=== PATIENT | female | born 1955 | race Asian ===

== ENCOUNTER 2017-07-13 10:58 | Emergency (ER) | payer SELFPAY ==
--- NOTE | 2017-07-13 11:30 | EDPHY ---
H & P Time Seen by Provider: 07/13/17 11:20 HPI/ROS: CHIEF COMPLAINT: Cough URI symptoms HISTORY OF PRESENT ILLNESS: 61-year-old woman visiting from [facility], has been in the [place] since early May, staying with family members all of whom have had similar URI symptoms, complaining of 3 days of fever, chills, intermittently productive cough and noticed some streaks of blood in her mucus. No chest pain. No back pain. No abdominal pain. No history of malignancy. No history of mobilization. No peripheral edema. No coagulopathic disorder. PRIMARY CARE PROVIDER: REVIEW OF SYSTEMS: A ten point review of systems was performed and is negative with the exception of the items mentioned in the HPI PAST MEDICAL & SURGICAL HISTORY: No pertinent medical or surgical history SOCIAL HISTORY: Nonsmoker PHYSICAL EXAM (Prior to examination, patient consented to physical exam, hands were washed and my usual and customary physical exam procedures followed) 1) GENERAL: Well-developed, well-nourished, alert and oriented. Appears to be in no acute distress. 2) HEAD: Normocephalic, atraumatic 3) HEENT: Pupils equal, round, reactive to light bilaterally. Sclera anicteric. Nasopharynx, oropharynx, clear, no lesions. Ears bilaterally with normal tympanic membranes. 4) NECK: Full range of motion, no meningeal signs. 5) LUNGS: Clear auscultation bilaterally, no wheezes, no rhonchi, no retractions. 6) HEART: Questionable right lower lobe rales. Regular rate and rhythm, no murmur, no heave, no gallop. 7) ABDOMEN: No guarding, no rebound, no focal tenderness, negative McBurney's, negative Campbell's, negative Rovsing's, negative peritoneal sign, 8) MUSCULOSKELETAL: Moving all extremities, no focal areas of tenderness, no obvious trauma. No peripheral edema or discoloration. Negative Homans no palpable cord 9) BACK: No CVA tenderness, no midline vertebral tenderness, no fluctuance, no step-off, no obvious trauma, no visual or palpable abnormality. 10) SKIN: No rash, no petechiae. 11) Psychiatric: Patient is oriented X 3, there is no agitation. DIFFERENTIAL DIAGNOSIS: In no particular include but limited to pneumonia, bronchitis, pulmonary embolus Smoking Status: Never smoked Constitutional: Initial Vital Signs Temperature (C) 37.1 C 07/13/17 11:09 Heart Rate 77 07/13/17 11:09 Respiratory Rate 18 07/13/17 11:09 Blood Pressure 111/79 07/13/17 11:09 O2 Sat (%) 95 07/13/17 11:09 O2 Delivery Mode Room Air Allergies/Adverse Reactions: No Known Allergies Allergy (Unverified 07/13/17 11:08) Home Medications: Medication Instructions Recorded Albuterol [Proventil Inhaler HFA 1 - 2 puffs IH Q4PRN PRN #1 mdi 07/13/17 (*)] Benzonatate [Tessalon Pearles (RX)] 200 mg PO TID PRN #15 cap 07/13/17 Ipratropium 0.06% Nasal [Atrovent 2 sprays EACHNARE QID #1 mdi 07/13/17 0.06% Nasal (RX)] MDM/Departure - MDM Imaging Results: Imaging Impressions Chest X-Ray 07/13/17 11:26 Impression: No evidence of acute cardiopulmonary abnormality. ED Course/Re-evaluation: This patient describes blood streaks in her mucus, does not describe gross hemoptysis. I think that pulmonary embolus is less than likely in this patient given her lack of risk factors. We discussed her chest x-ray showing no definitive infiltrate. She has been informed that influenza is not ruled out however given her symptoms some occurring for 3 days, she is maintaining normal saturations, I do not anticipate hospitalization, I do not think that influenza testing is currently indicated. We discussed supportive therapy for more than likely viral etiology. - Depart Disposition: Home, Routine, Self-Care Clinical Impression: Upper respiratory infection Qualifiers: URI type: unspecified URI Qualified Code(s): J06.9 - Acute upper respiratory infection, unspecified Condition: Good Instructions: Upper Respiratory Infection (ED) Additional Instructions: You were examined in the emergency department today for upper respiratory infection (URI) like symptoms. While more URIs are caused by viral illnesses, we cannot always exclude the possibility of a bacterial infection that may require treatment with antibiotics.. Return to the emergency department immediately for change in breathing habits, change in voice, change in swallowing habits, change in mental status, or any other symptoms that concern you. Prescriptions: Albuterol [Proventil Inhaler HFA (*)] 1 - 2 puffs IH Q4PRN PRN #1 mdi PRN Reason: Cough, Moderate Benzonatate [Tessalon Pearles (RX)] 200 mg PO TID PRN #15 cap PRN Reason: Cough, Moderate Ipratropium 0.06% Nasal [Atrovent 0.06% Nasal (RX)] 2 sprays EACHNARE QID #1 mdi Referrals: Jagdish Gupta DO [Doctor of Osteopathy] - 2-3 days, call for appt.
[2017-07-13 13:26] VITALS: BP 129/79; PULSE 66; RESP 18; TEMP 98.2; O2SAT 97
== END 2017-07-13 13:26 | disposition home or self-care (01) ==
DX: J06.9 Acute upper respiratory infection, unspecified (principal)